=== PATIENT | female | born 1995 | race Two or more races ===

== ENCOUNTER 2020-07-31 13:52 | Emergency (ER) | payer MEDICAID ==
[~2020-07-31] VITALS: Ht 162.6 cm; Wt 46.0 kg
[2020-07-31] MEDS ORDERED: BACITRACIN ZINC OINT UDPKT TOP ONE (16:00)
[2020-07-31 16:25] VITALS: BP 115/70
== END 2020-07-31 16:34 | disposition home or self-care (01) ==
LOC: ER 13:52
DX: S91.311A Laceration without foreign body, right foot, initial encounter (principal); Z98.890 Other specified postprocedural states; W25.XXXA Contact with sharp glass, initial encounter; Y93.89 Activity, other specified; Y92.018 Other place in single-family (private) house as the place of occurrence of the external cause
CPT/HCPCS: 73650; 99283; Z7610

== ENCOUNTER 2024-06-21 13:47 | Emergency (ER) | payer MEDICAID, OTHER ==
[~2024-06-21] VITALS: Ht 167.6 cm; Wt 69.0 kg
[2024-06-21 14:05] VITALS: O2SAT 97
[2024-06-21] MEDS: IBUPROFEN 600MG TABLET PO ONE (16:01)
[2024-06-21] MEDS: METHOCARBAMOL 500MG TABLET PO ONE (16:02)
[2024-06-21 16:47] LABS: BASOPHILS % 0.4 % (0.0-2.0); EOSINOPHILS % 0.3 % (0.0-5.0); HEMATOCRIT. 38.1 % (36.0-48.0); HEMOGLOBIN. 12.6 g/dL (12.0-16.0); LYMPHOCYTES % 15.5 % (20.0-50.0); MEAN CORPUSCULAR HEMOGLOBIN 29.9 pg (28.0-32.0); MEAN CORPUSCULAR HGB CONC 33.1 g/dL (31.0-37.0); MEAN CORPUSCULAR VOLUME 90.2 fL (81.0-99.0); MEAN PLATELET VOLUME 8.5 fl (7.4-10.4); NEUTROPHILS % 79.8 % (40.0-76.0); PLATELET 340 x1000/uL (130-400); RED BLOOD CELL COUNT 4.23 mill/uL (4.2-5.4); RED CELL DISTRIBUTION WIDTH 13.1 % (11.6-14.6); WHITE BLOOD COUNT 10.1 x1000/uL (4.5-11.0)
[2024-06-21 16:56] LABS: CHLORIDE 108 mEq/L (98-107); POTASSIUM 3.9 mEq/L (3.5-5.1); SODIUM 140 mEq/L (136-145)
[2024-06-21 16:57] LABS: CARBON DIOXIDE 24 mEq/L (21-32)
[2024-06-21 16:58] LABS: CALCIUM 9.7 mg/dL (8.7-10.4)
[2024-06-21 17:03] LABS: CREATININE 0.6 mg/dL (0.6-1.0); GLUCOSE 101 mg/dL (70-105); UREA NITROGEN BLOOD 8 mg/dL (9-23)
[2024-06-21 17:04] LABS: HCG SCREEN NEGATIVE
[2024-06-21 18:58] VITALS: TEMP 36.7
[2024-06-21] MEDS ORDERED: METH-653 MT (19:27)
[2024-06-21] MEDS ORDERED: IBUP-2029 MT (19:27)
[2024-06-21] MEDS ORDERED: LIDO700A30 TP (19:27)
[2024-06-21 20:34] VITALS: BP 110/74; PULSE 84; RESP 18; O2SAT 100
== END 2024-06-21 20:37 | disposition home or self-care (01) ==
LOC: ER 13:47
DX: S33.5XXA Sprain of ligaments of lumbar spine, initial encounter (principal); S63.501A Unspecified sprain of right wrist, initial encounter; S20.219A Contusion of unspecified front wall of thorax, initial encounter; V43.52XA Car driver injured in collision with other type car in traffic accident, initial encounter; Y93.89 Activity, other specified; Y92.89 Other specified places as the place of occurrence of the external cause; Y99.8 Other external cause status
CPT/HCPCS: 29125; 36415; 71045; 72128; 72131; 73130; 73560; 80048; 84703; 85025; 99285